=== PATIENT | female | born 1985 | race Caucasian/White ===

== ENCOUNTER 2019-07-01 13:33 | Inpatient (IN) | payer OTHER ==
[2019-07-01 15:10] VITALS: BMI 31.2
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
[2019-07-01] MEDS ORDERED: hydrOXYzine PAMOATE 25 MG CAPSULE (FP) PO PRN (16:52)
[2019-07-01] MEDS ORDERED: BISMUTH SUBSALICYLATE 524 MG/30 ML UD PO PRN (16:52)
[2019-07-01] MEDS ORDERED: MAGNESIUM CITRATE 300 ML BOTTLE PO PRN (16:52)
[2019-07-01] MEDS ORDERED: MENTHOL/PHENOL 1 EACH UD MM PRN (16:52)
[2019-07-01] MEDS ORDERED: MAG HYDROX/AL HYDROX/SIMETH 30 ML UNIT-DOSE CUP PO PRN (16:52)
[2019-07-01] MEDS ORDERED: ACETAMINOPHEN 325 MG TABLET (FP) PO PRN ×2 (16:52)
[2019-07-01] MEDS ORDERED: chlordiazePOXIDE HCL 25 MG CAPSULE PO PRN (16:52)
[2019-07-01] MEDS ORDERED: MAGNESIUM HYDROX 2400MG/30ML ORAL SUSPENSION 30 ML CUP PO PRN (16:52)
[2019-07-01] MEDS: MELATONIN 5 MG TABLETS PO PRN (22:06)
[2019-07-01] MEDS: chlordiazePOXIDE HCL 25 MG CAPSULE PO SCH (22:06)
[2019-07-01] MEDS: THIAMINE HCL 100 MG TABLET (FP) PO SCH (22:06)
[2019-07-02] MEDS: chlordiazePOXIDE HCL 25 MG CAPSULE PO SCH ×2 (05:59→10:31)
[2019-07-02 10:02] LABS: HEMATOCRIT 40.4 % (32.4-45.2); HEMOGLOBIN 13.9 GM/dL (10.7-15.3); MCH 32.9 pg (25.7-33.7); MCHC 34.3 g/dl (32.0-36.0); MEAN PLT VOLUME 8.5 fl (7.5-11.1); PLATELET COUNT 288 K/MM3 (134-434); RBC 4.21 M/mm3 (3.60-5.2); RDW 13.1 % (11.6-15.6); WHITE BLOOD COUNT 8.4 K/mm3 (4.0-10.0)
[2019-07-02 10:04] LABS: ALBUMIN 3.3 g/dl (3.4-5.0); BILIRUBIN,TOTAL 0.4 mg/dL (0.2-1); BLOOD UREA NITROGEN 13.1 mg/dL (7-18); CALCIUM 8.6 mg/dL (8.5-10.1); CREATININE 0.6 mg/dL (0.55-1.3); POTASSIUM 4.2 mmol/L (3.5-5.1); TOT PROT 6.1 g/dl (6.4-8.2)
[2019-07-02] MEDS: PRENATAL VITAMINS W/ FOLIC ACID TABLET (FP) PO SCH (10:31)
[2019-07-02] MEDS: NICOTINE 14 MG/24 HOURS TOPICAL PATCH TD SCH (10:31)
--- NOTE | 2019-07-02 12:17 | EKG ---
Test Reason : Blood Pressure : / mmHG Vent. Rate : 061 BPM Atrial Rate : 061 BPM P-R Int : 152 ms QRS Dur : 084 ms QT Int : 424 ms P-R-T Axes : 062 069 063 degrees QTc Int : 426 ms NORMAL SINUS RHYTHM WITH SINUS ARRHYTHMIA NO PREVIOUS ECGS AVAILABLE Confirmed by LISBETH STEWART MD ([id number]) on 07/02/2019 12:17:18 PM Referred By: Confirmed By:LISBETH STEWART MD
--- NOTE | 2019-07-02 14:34 | PN ---
S CIWA - CIWA Score Nausea/Vomitin-Mild Nausea/No Vomiting Muscle Tremors: 2 Anxiety: 2 Agitation: 2 Paroxysmal Sweats: No Perspiration Orientation: 0-Oriented Tacttile Disturbances: 1-Very Mild Itch/Numbness Auditory Disturbances: 0-None Visual Disturbances: 0-None Headache: 1-Very Mild CIWA-Ar Total Score: 9 BHS Progress Note (SOAP) Subjective: ALERT,IRRITABLE,ANXIOUS,INTERRUPTED SLEEP,PAIN IN THE BODY Objective: 07/02/19 14:32 Vital Signs Temperature 97.3 F L 07/02/19 13:41 Pulse Rate 61 07/02/19 13:41 Respiratory Rate 18 07/02/19 13:41 Blood Pressure 120/81 07/02/19 13:41 O2 Sat by Pulse Oximetry (%) Assessment: 07/02/19 14:33 WITHDRAWAL SYMPTOM Plan: CONTINUE DETOX,CHANGE REGIMENT TO ATIVAN,DUE TO ELEVATION OF ALT,AST,REPEAT ALT, AST,INR IN AM,D/C TYLENOL
[2019-07-02] MEDS ORDERED: LORazepam 1 MG TABLET PO PRN (14:37)
[2019-07-02] MEDS: LORazepam 2 MG TABLET PO SCH ×2 (16:58→22:10)
[2019-07-02] MEDS: NICOTINE POLACRILEX 2 MG GUM BUC PRN (20:42)
[2019-07-02] MEDS: MELATONIN 5 MG TABLETS PO PRN (22:10)
[2019-07-02] MEDS: THIAMINE HCL 100 MG TABLET (FP) PO SCH (22:10)
[2019-07-03] MEDS ORDERED: chlordiazePOXIDE HCL 25 MG CAPSULE PO SCH (05:00)
[2019-07-03] MEDS: LORazepam 2 MG TABLET PO SCH ×4 (05:33→22:31)
[2019-07-03] MEDS: PRENATAL VITAMINS W/ FOLIC ACID TABLET (FP) PO SCH (10:27)
[2019-07-03] MEDS ORDERED: NICOTINE 14 MG/24 HOURS TOPICAL PATCH TD SCH (10:28)
[2019-07-03 10:49] LABS: SGOT/AST 154 U/L (15-37); SGPT/ALT 352 U/L (13-61)
[2019-07-03 10:54] LABS: INR 0.94 (0.83-1.09); PROTHROMBIN TIME (PATIENT) 11.1 SEC (9.7-13.0)
[2019-07-03] MEDS: NICOTINE 14 MG/24 HOURS TOPICAL PATCH TD SCH (11:04)
[2019-07-03] MEDS ORDERED: NICOTINE 7 MG/24 HOURS TOPICAL PATCH TD SCH (11:30)
[2019-07-03] MEDS: IBUPROFEN 400 MG TABLET (FP) PO PRN (11:48)
--- NOTE | 2019-07-03 13:01 | PN ---
S CIWA - CIWA Score Nausea/Vomitin-No Nausea/No Vomiting Muscle Tremors: None Anxiety: 3 Agitation: 0-Normal Activity Paroxysmal Sweats: 3 Orientation: 0-Oriented Tacttile Disturbances: 0-None Auditory Disturbances: 0-None Visual Disturbances: 0-None Headache: 2-Mild CIWA-Ar Total Score: 8 BHS Progress Note (SOAP) Subjective: c/o sweats, anxiety, and headache. Objective: 07/03/19 13:00 Vital Signs 07/03/19 07/03/19 06:45 09:26 Temperature 97.1 F L 97.5 F L Pulse Rate 49 L 77 Respiratory 16 18 Rate Blood Pressure 111/70 120/83 Laboratory Last Values WBC 8.4 K/mm3 (4.0-10.0) 07/02/19 08:00 RBC 4.21 M/mm3 (3.60-5.2) 07/02/19 08:00 Hgb 13.9 GM/dL (10.7-15.3) 07/02/19 08:00 Hct 40.4 % (32.4-45.2) 07/02/19 08:00 MCV 96.0 fl (80-96) 07/02/19 08:00 MCH 32.9 pg (25.7-33.7) 07/02/19 08:00 MCHC 34.3 g/dl (32.0-36.0) 07/02/19 08:00 RDW 13.1 % (11.6-15.6) 07/02/19 08:00 Plt Count 288 K/MM3 (134-434) 07/02/19 08:00 MPV 8.5 fl (7.5-11.1) 07/02/19 08:00 PT with INR 11.10 SEC (9.7-13.0) 07/03/19 07:40 INR 0.94 (0.83-1.09) 07/03/19 07:40 Sodium 141 mmol/L (136-145) 07/02/19 08:00 Potassium 4.2 mmol/L (3.5-5.1) 07/02/19 08:00 Chloride 107 mmol/L (98-107) 07/02/19 08:00 Carbon Dioxide 29 mmol/L (21-32) 07/02/19 08:00 Anion Gap 4 MMOL/L (8-16) L 07/02/19 08:00 BUN 13.1 mg/dL (7-18) 07/02/19 08:00 Creatinine 0.6 mg/dL (0.55-1.3) 07/02/19 08:00 Est GFR (CKD-EPI)AfAm 139.78 07/02/19 08:00 Est GFR (CKD-EPI)NonAf 120.61 07/02/19 08:00 Random Glucose 94 mg/dL (74-106) 07/02/19 08:00 Calcium 8.6 mg/dL (8.5-10.1) 07/02/19 08:00 Total Bilirubin 0.4 mg/dL (0.2-1) 07/02/19 08:00 AST 154 U/L (15-37) H 07/03/19 07:40 ALT 352 U/L (13-61) H 07/03/19 07:40 Alkaline Phosphatase 56 U/L (45-117) 07/02/19 08:00 Total Protein 6.1 g/dl (6.4-8.2) L 07/02/19 08:00 Albumin 3.3 g/dl (3.4-5.0) L 07/02/19 08:00 POC Urine HCG, Qual Negative 07/01/19 16:32 RPR Titer Nonreactive (NONREACTIVE) 07/02/19 08:00 Labs noted. Assessment: 07/03/19 13:01 AOX3, in no acute respiratory distress. Full ROM, ambulating in the unit. withdrawal symptoms. Plan: continue detox.
[2019-07-03] MEDS: MELATONIN 5 MG TABLETS PO PRN (21:30)
[2019-07-03] MEDS: THIAMINE HCL 100 MG TABLET (FP) PO SCH (21:30)
[2019-07-04] MEDS ORDERED: chlordiazePOXIDE HCL 10 MG CAPSULE PO PRN
[2019-07-04] MEDS ORDERED: chlordiazePOXIDE HCL 10 MG CAPSULE PO SCH (05:00)
[2019-07-04] MEDS: LORazepam 1 MG TABLET PO SCH ×4 (06:24→22:40)
[2019-07-04] MEDS: METHOCARBAMOL 500 MG TABLET PO PRN ×3 (06:25→22:41)
[2019-07-04] MEDS: IBUPROFEN 400 MG TABLET (FP) PO PRN (06:25)
[2019-07-04] MEDS: PRENATAL VITAMINS W/ FOLIC ACID TABLET (FP) PO SCH (10:28)
[2019-07-04] MEDS: NICOTINE 21 MG/24 HOURS TOPICAL PATCH TD SCH (10:28)
--- NOTE | 2019-07-04 14:46 | PN ---
S CIWA - CIWA Score Nausea/Vomitin-No Nausea/No Vomiting Muscle Tremors: 2 Anxiety: 2 Agitation: 1-Slight > Activity Paroxysmal Sweats: 1-Minimal Palms Moist Orientation: 0-Oriented Tacttile Disturbances: 0-None Auditory Disturbances: 0-None Visual Disturbances: 0-None Headache: 0-None Present CIWA-Ar Total Score: 6 BHS Progress Note (SOAP) Subjective: 34 years old female admitted on 07/01/19 for alcohol withdrawal sx management treated with ativan detox regimen tremor anxiety restlessness Objective: 07/04/19 14:45 Vital Signs Temperature 98 F 07/04/19 10:08 Pulse Rate 64 07/04/19 10:08 Respiratory Rate 18 07/04/19 10:08 Blood Pressure 114/72 07/04/19 10:08 O2 Sat by Pulse Oximetry (%) Laboratory Last Values WBC 8.4 K/mm3 (4.0-10.0) 07/02/19 08:00 RBC 4.21 M/mm3 (3.60-5.2) 07/02/19 08:00 Hgb 13.9 GM/dL (10.7-15.3) 07/02/19 08:00 Hct 40.4 % (32.4-45.2) 07/02/19 08:00 MCV 96.0 fl (80-96) 07/02/19 08:00 MCH 32.9 pg (25.7-33.7) 07/02/19 08:00 MCHC 34.3 g/dl (32.0-36.0) 07/02/19 08:00 RDW 13.1 % (11.6-15.6) 07/02/19 08:00 Plt Count 288 K/MM3 (134-434) 07/02/19 08:00 MPV 8.5 fl (7.5-11.1) 07/02/19 08:00 PT with INR 11.10 SEC (9.7-13.0) 07/03/19 07:40 INR 0.94 (0.83-1.09) 07/03/19 07:40 Sodium 141 mmol/L (136-145) 07/02/19 08:00 Potassium 4.2 mmol/L (3.5-5.1) 07/02/19 08:00 Chloride 107 mmol/L (98-107) 07/02/19 08:00 Carbon Dioxide 29 mmol/L (21-32) 07/02/19 08:00 Anion Gap 4 MMOL/L (8-16) L 07/02/19 08:00 BUN 13.1 mg/dL (7-18) 07/02/19 08:00 Creatinine 0.6 mg/dL (0.55-1.3) 07/02/19 08:00 Est GFR (CKD-EPI)AfAm 139.78 07/02/19 08:00 Est GFR (CKD-EPI)NonAf 120.61 07/02/19 08:00 Random Glucose 94 mg/dL (74-106) 07/02/19 08:00 Calcium 8.6 mg/dL (8.5-10.1) 07/02/19 08:00 Total Bilirubin 0.4 mg/dL (0.2-1) 07/02/19 08:00 AST 154 U/L (15-37) H 07/03/19 07:40 ALT 352 U/L (13-61) H 07/03/19 07:40 Alkaline Phosphatase 56 U/L (45-117) 07/02/19 08:00 Total Protein 6.1 g/dl (6.4-8.2) L 07/02/19 08:00 Albumin 3.3 g/dl (3.4-5.0) L 07/02/19 08:00 POC Urine HCG, Qual Negative 07/01/19 16:32 RPR Titer Nonreactive (NONREACTIVE) 07/02/19 08:00 lab noted ast elevation Assessment: 07/04/19 14:46 alcohol withdrawal sx Plan: continue ativan detox regimen
[2019-07-04] MEDS: THIAMINE HCL 100 MG TABLET (FP) PO SCH (22:40)
[2019-07-04] MEDS: MELATONIN 5 MG TABLETS PO PRN (22:40)
[2019-07-05] MEDS ORDERED: LORazepam 0.5 MG TABLET PO PRN
[2019-07-05] MEDS ORDERED: chlordiazePOXIDE HCL 10 MG CAPSULE PO SCH (05:00)
[2019-07-05] MEDS: IBUPROFEN 400 MG TABLET (FP) PO PRN ×2 (06:08→22:09)
[2019-07-05] MEDS: LORazepam 0.5 MG TABLET PO SCH ×4 (06:08→22:08)
[2019-07-05] MEDS: METHOCARBAMOL 500 MG TABLET PO PRN ×2 (06:09→17:48)
[2019-07-05] MEDS: NICOTINE POLACRILEX 2 MG GUM BUC PRN (09:19)
[2019-07-05] MEDS: NICOTINE 21 MG/24 HOURS TOPICAL PATCH TD SCH (10:14)
[2019-07-05] MEDS: PRENATAL VITAMINS W/ FOLIC ACID TABLET (FP) PO SCH (10:14)
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
[2019-07-05 19:06] LABS: HYALINE CASTS 0 /lpf (0-8); URINE APPEARANCE CLEAR; URINE BACTERIA 70.7 /hpf (NEGATIVE); URINE BILIRUBIN NEGATIVE (NEGATIVE); URINE COLOR YELLOW; URINE GLUCOSE (UA) NEGATIVE (NEGATIVE); URINE KETONE NEGATIVE (NEGATIVE); URINE LEUK ESTERASE 1+ (NEGATIVE); URINE NITRITE NEGATIVE (NEGATIVE); URINE PROTEIN NEGATIVE (NEGATIVE); URINE RBC 1 /hpf (0-4); URINE UROBILINOGEN 0.2 mg/dL (0.2-1.0); URINE WBC 3 /hpf (0-5)
[2019-07-05] MEDS: THIAMINE HCL 100 MG TABLET (FP) PO SCH (22:08)
[2019-07-05] MEDS: MELATONIN 5 MG TABLETS PO PRN (22:09)
[2019-07-06] MEDS ORDERED: LORazepam 0.5 MG TABLET PO ONE (05:00)
[2019-07-06] MEDS ORDERED: chlordiazePOXIDE HCL 10 MG CAPSULE PO ONE (05:00)
[2019-07-06] MEDS: METHOCARBAMOL 500 MG TABLET PO PRN (05:40)
[2019-07-06 09:26] VITALS: BP 111/74; PULSE 89; TEMP 96.7
--- NOTE | 2019-07-06 10:17 | DS ---
[facility] Detox Discharge Summary Admission Date: 07/01/19 Discharge Date: 07/06/19 - History Present History: Alcohol Dependence Additional Comments: 34 years old female admitted on 07/01/19 for alcohol withdrawal sx management treated with ativan detox regimen patient is alert oriented x 3 respiratory clear lung bilaterally on auscultation abdomen soft round obese no rebound tenderness extremities full rang of motion - Physical Exam Results Vital Signs: Vital Signs Temperature 96.7 F L 07/06/19 09:25 Pulse Rate 89 07/06/19 09:25 Respiratory Rate 18 07/06/19 09:25 Blood Pressure 111/74 07/06/19 09:25 O2 Sat by Pulse Oximetry (%) Pertinent Admission Physical Exam Findings: alcohol withdrawal sx Laboratory Last Values WBC 8.4 K/mm3 (4.0-10.0) 07/02/19 08:00 RBC 4.21 M/mm3 (3.60-5.2) 07/02/19 08:00 Hgb 13.9 GM/dL (10.7-15.3) 07/02/19 08:00 Hct 40.4 % (32.4-45.2) 07/02/19 08:00 MCV 96.0 fl (80-96) 07/02/19 08:00 MCH 32.9 pg (25.7-33.7) 07/02/19 08:00 MCHC 34.3 g/dl (32.0-36.0) 07/02/19 08:00 RDW 13.1 % (11.6-15.6) 07/02/19 08:00 Plt Count 288 K/MM3 (134-434) 07/02/19 08:00 MPV 8.5 fl (7.5-11.1) 07/02/19 08:00 PT with INR 11.10 SEC (9.7-13.0) 07/03/19 07:40 INR 0.94 (0.83-1.09) 07/03/19 07:40 Sodium 141 mmol/L (136-145) 07/02/19 08:00 Potassium 4.2 mmol/L (3.5-5.1) 07/02/19 08:00 Chloride 107 mmol/L (98-107) 07/02/19 08:00 Carbon Dioxide 29 mmol/L (21-32) 07/02/19 08:00 Anion Gap 4 MMOL/L (8-16) L 07/02/19 08:00 BUN 13.1 mg/dL (7-18) 07/02/19 08:00 Creatinine 0.6 mg/dL (0.55-1.3) 07/02/19 08:00 Est GFR (CKD-EPI)AfAm 139.78 07/02/19 08:00 Est GFR (CKD-EPI)NonAf 120.61 07/02/19 08:00 Random Glucose 94 mg/dL (74-106) 07/02/19 08:00 Calcium 8.6 mg/dL (8.5-10.1) 07/02/19 08:00 Total Bilirubin 0.4 mg/dL (0.2-1) 07/02/19 08:00 AST 241 U/L (15-37) H 07/05/19 09:15 ALT 352 U/L (13-61) H 07/03/19 07:40 Alkaline Phosphatase 56 U/L (45-117) 07/02/19 08:00 Total Protein 6.1 g/dl (6.4-8.2) L 07/02/19 08:00 Albumin 3.3 g/dl (3.4-5.0) L 07/02/19 08:00 Urine Color Yellow 07/05/19 15:40 Urine Appearance Clear 07/05/19 15:40 Urine pH 7.0 (5.0-8.0) 07/05/19 15:40 Ur Specific [place] 1.005 (1.010-1.035) L 07/05/19 15:40 Urine Protein Negative (NEGATIVE) 07/05/19 15:40 Urine Glucose (UA) Negative (NEGATIVE) 07/05/19 15:40 Urine Ketones Negative (NEGATIVE) 07/05/19 15:40 Urine Blood Negative (NEGATIVE) 07/05/19 15:40 Urine Nitrite Negative (NEGATIVE) 07/05/19 15:40 Urine Bilirubin Negative (NEGATIVE) 07/05/19 15:40 Urine Urobilinogen 0.2 mg/dL (0.2-1.0) 07/05/19 15:40 Ur Leukocyte Esterase 1+ (NEGATIVE) H 07/05/19 15:40 Urine WBC (Auto) 3 /hpf (0-5) 07/05/19 15:40 Urine RBC (Auto) 1 /hpf (0-4) 07/05/19 15:40 Urine Casts (Auto) 0 /lpf (0-8) 07/05/19 15:40 U Epithel Cells (Auto) 2.0 /HPF (0-5/HPF) 07/05/19 15:40 Urine Bacteria (Auto) 70.7 /hpf (NEGATIVE) 07/05/19 15:40 POC Urine HCG, Qual Negative 07/01/19 16:32 RPR Titer Nonreactive (NONREACTIVE) 07/02/19 08:00 lab noted patient agrees to bringing in lab report to aftercare facility for follow up ast elevation - Treatment Hospital Course: Detox Protocol Followed, Detoxed Safely, Responded well, Discharged Condition Good, Rehab Referral Accepted Patient has Accepted a Rehab Referral to: [facility] - Medication Discharge Medications: Ambulatory Orders NK [No Known Home Medication] 07/01/19 - Diagnosis (1) Elevated AST (SGOT) Status: Chronic (2) Alcohol dependence with withdrawal, uncomplicated Status: Acute (3) Nicotine dependence Status: Acute Qualifiers: Nicotine product type: cigarettes Substance use status: in withdrawal Qualified Code(s): F17.213 - Nicotine dependence, cigarettes, with withdrawal - AMA Did Patient Leave Against Medical Advice: No CIWA Score - CIWA Score Nausea/Vomitin-No Nausea/No Vomiting Muscle Tremors: 1-None Visible, but [place] Anxiety: 0-No Anxiety, at Ease Agitation: 0-Normal Activity Paroxysmal Sweats: No Perspiration Orientation: 0-Oriented Tacttile Disturbances: 0-None Auditory Disturbances: 0-None Visual Disturbances: 0-None Headache: 0-None Present CIWA-Ar Total Score: 1
== END 2019-07-06 09:28 | disposition home or self-care (01) | DRG 775 ==
LOC: YASAS 13:33 → Y3N 17:48
PROVIDERS: ADMIT Allergy & Immunology; ATTEND Allergy & Immunology
PROC: HZ2ZZZZ Detoxification Services for Substance Abuse Treatment (ICD-10-PCS; principal; 2019-07-01)
DX: F10.230 Alcohol dependence with withdrawal, uncomplicated (principal); F17.213 Nicotine dependence, cigarettes, with withdrawal; J45.909 Unspecified asthma, uncomplicated; R74.0 Nonspecific elevation of levels of transaminase and lactic acid dehydrogenase [LDH]; M79.662 Pain in left lower leg; M25.571 Pain in right ankle and joints of right foot
CPT/HCPCS: 36415; 73030-TC-RT-FY; 80053; 81003; 81025; 84450; 84460; 85027; 85610; 86593; 93005; 93010